=== PATIENT | male | born 1975 | race Caucasian/White ===

== ENCOUNTER 2019-06-19 14:46 | Inpatient (IN) | payer OTHER ==
[~2019-06-19] VITALS: Ht 185.4 cm; Wt 83.5 kg
--- NOTE | ~2019-06-19 | OP ---
[address] [address] OPERATIVE REPORT Name: KAROLINE BISHOP Room: [address] IN M.R.#: [id number] Admission: 06/19/19 Attend Phys: Natali Huynh MD Discharge: Date of : 75 Report #: [id number] THIS REPORT FOR: //name// cc: ERICA Cervantes family physician/PCP ERICA Cervantes family physician/PCP ~ THIS REPORT FOR: //name// CC: ERICA physician/PCP Natali Huynh DATE OF SERVICE: 06/20/2019 PREOPERATIVE DIAGNOSIS: Symptomatic cholelithiasis. POSTOPERATIVE DIAGNOSIS: Symptomatic cholelithiasis. OPERATIVE PROCEDURE DONE: Laparoscopic cholecystectomy. OPERATING SURGEON: Giancarlo Madrid MD INDICATION FOR THE PROCEDURE: The patient is a 43-year-old male who presented with complaints of recurrent episodes of right upper quadrant pain. Clinical exam and ultrasound scan that was done showed features of symptomatic cholelithiasis. The patient was advised laparoscopic cholecystectomy. The patient showed understanding and agreed to proceed. DESCRIPTION OF PROCEDURE: After explaining to the patient in detail and informed consent was obtained, the patient was identified in the preoperative holding area. The patient was transferred to the operating room and was placed in supine position. Sequential compressive devices were placed for DVT prophylaxis. Some preoperative antibiotics were given. After induction of anesthesia, the abdomen was prepped and draped in a sterile fashion. Through a right upper quadrant 1 cm incision and using Optiview technique, the peritoneal cavity was entered and pneumoperitoneum was created. Thereafter, under direct vision, another 5 mm trocar was placed through a supraumbilical incision. Another 5 mm trocar was placed in the epigastrium and one in the right lateral subcostal region. Upon initial inspection, the gallbladder was retracted and the peritoneal reflection along the neck of the gallbladder was gently dissected off. Cystic duct was identified and was isolated from the surrounding structures. Cystic artery was identified. During this part of the dissection, there was an inadvertent bleeding from the cystic artery, which was subsequently clipped. The cystic duct was then double clipped proximally and single clipped applied distally and was then divided. Cystic artery also was then divided in a similar fashion. The gallbladder was gently dissected off the liver bed using hook electrocautery. Absolute hemostasis was achieved. Thorough saline irrigation was given. The gallbladder was retrieved [place] [address] OPERATIVE REPORT Name: KAROLINE BISHOP Room: [address]#: [id number] Admission: 06/19/19 Attend Phys: Natali Huynh MD Discharge: Date of : 75 Report #: [id number] the lateral most incision. Incisions were then closed with 4-0 Monocryl. Dermabond was applied. The patient was stable at the end of the procedure. The patient was awoken up from anesthesia and was transferred to the recovery room in stable condition. ESTIMATED BLOOD LOSS: Approximately 50 mL. CONDITION OF THE PATIENT: Stable. FLUIDS GIVEN: Per anesthesia notes. SPECIMEN SENT: Gallbladder. COMPLICATIONS: None. ANESTHESIA: General anesthesia. By: [id number] Madrid MD /nt
[2019-06-19 15:04] VITALS: BP 165/107
[2019-06-19 15:47] LABS: ABSOLUTE BASOPHILS 0.1 thou/uL (0.0-0.2); ABSOLUTE EOSINOPHILS 0.2 thou/uL (0.0-0.7); ABSOLUTE LYMPHOCYTES 1.8 thou/uL (0.8-5.3); ABSOLUTE MONOCYTES 0.5 thou/uL (0.0-1.2); ABSOLUTE NEUTROPHILS 3.3 thou/uL (1.6-8.1); BASOPHILS 0.9 %; EOSINOPHILS 3.3 %; HEMATOCRIT 45.6 % (42.0-52.0); HEMOGLOBIN 15.9 gm/dL (14.0-18.0); LYMPHOCYTES 31.4 %; MCH 31.6 pg (26.0-34.0); MCHC 34.8 g/dL (28.0-37.0); MCV 90.8 fL (80.0-100.0); MONOCYTES 8.1 %; NUCLEATED RBCS 0 /100WBC; PLATELET COUNT* 208 thou/uL (150-400); POLYS 56.3 %; RBC 5.02 mil/uL (4.50-6.00); RDW-CV 13.4 % (10.5-14.5); WBC 5.9 thou/uL (4.0-11.0)
[2019-06-19 15:56] LABS: CALCIUM 8.9 mg/dL (8.5-10.1); CREATININE 1.2 mg/dL (0.6-1.3); POTASSIUM 3.9 mmol/L (3.5-5.1)
[2019-06-19 16:00] LABS: ALBUMIN 4.4 g/dL (3.4-5.0); TOTAL BILIRUBIN 0.3 mg/dL (<0.1-1.0); TOTAL PROTEIN 7.9 g/dL (6.4-8.2)
--- NOTE | 2019-06-19 18:55 | NUR ---
REPORT GIVEN TO CARL BRUNO WHO IS TO ASSUME PT CARE AT THIS TIME.
[2019-06-19 19:00] LABS: URINE BILIRUBIN NEGATIVE (Negative); URINE BLOOD NEGATIVE (Negative); URINE CLARITY CLEAR; URINE COLOR YELLOW; URINE GLUCOSE-RANDOM NEGATIVE (Negative); URINE KETONES NEGATIVE (Negative); URINE LEUKOCYTES-REFLEX NEGATIVE (Negative); URINE NITRITE-REFLEX NEGATIVE (Negative); URINE PROTEIN NEGATIVE (Negative); URINE UROBILINOGEN 0.2 E.U./dl (0.2-1.0)
[2019-06-19 20:00] VITALS: BP 134/86
[2019-06-19 20:10] VITALS: BP 145/95
[2019-06-20 00:44] VITALS: BP 145/95
--- NOTE | 2019-06-20 06:12 | NUR ---
PATIENT ADMITTED TO UNIT FROM THE ER AT APPROXIMATELY 2009. VSS ON RA. PAIN WELL CONTROLLED AT THIS TIME. IV FLUIDS STARTED. PATIENT ORIENTED TO ROOM AND POLICIES. FALL EDUCATION GIVEN AND FALL AGREEMENT SIGNED. ASSESSMENT CHARTED. PATIENT HAS RESTED WELL THROUGHOUT THE NIGHT. PATIENT INSTRUCTED TO USE CALL LIGHT WHEN NEEDING ASSISTANCE. HOURLY ROUNDS MADE. WILL CONTINUE WITH PLAN OF CARE AND NURSING TO MONITOR.
[2019-06-20 08:40] VITALS: BP 138/97
--- NOTE | 2019-06-20 12:00 | NUR ---
DID NOT SEE PT.TODAY. NURSING SAID HE WAS IN A LOT OF PAIN TODAY. COULD BE HEARD OUTSIDE OF HIS CLOSED DOOR, MOANING AND CRYING OUT. NURSING ATTEMPTING TO GET HIM MORE PAIN MEDICATION FROM
[2019-06-20 17:05] VITALS: BP 121/74
--- NOTE | 2019-06-20 19:00 | NUR ---
PATIENT C/O UNCONTROLLED PAIN IN RT ARM THIS AM, IV SITE NOTED FIRM. IV DISCONTINUED, CATH TIP INTACT. COTTON BALL/TAPE TO SITE, PATIENT ARM NOTED COOL, NAILBEDS WHITE, CAP REFILL WNL, PULSES WNL. US DONE, SEE RESULT. IV SITE TO LT FA. FLUIDS INFUSING W/O DIFF. TO SURGERY FOR PROCEDURE. RETURN TO , REPORT REC'D FROM DAY CARE PROVIDER. PATIENT RESTING, FAMILY MEMBERS PRESENT. PATIENT AWAKENS EASILY TO VERBAL/TOUCH STIM, DENIES NEED FOR PAIN INTERVENTION, CDB DONE. CALM. SCDs ON BLE AND FUNCTIONING APPROP. 4 SURG SITES NOTED TO ABD, NO DRSGS, NO DRNG, WELL APPROX, WNL. CALL LIGHT IN REACH. ~TJRN
[2019-06-20 20:10] VITALS: BP 127/86
[2019-06-21] VITALS: BP 168/48
[2019-06-21 03:40] LABS: HEMATOCRIT 43.7 % (42.0-52.0); HEMOGLOBIN 14.9 gm/dL (14.0-18.0); MCH 31.3 pg (26.0-34.0); MCHC 34.2 g/dL (28.0-37.0); MCV 91.6 fL (80.0-100.0); MPV 9.6 fl. (7.2-11.1); NUCLEATED RBCS 0 /100WBC; PLATELET COUNT* 162 thou/uL (150-400); RBC 4.77 mil/uL (4.50-6.00); RDW-CV 12.9 % (10.5-14.5); WBC 8.2 thou/uL (4.0-11.0)
[2019-06-21 03:44] LABS: CALCIUM 8.3 mg/dL (8.5-10.1); POTASSIUM 4.5 mmol/L (3.5-5.1)
[2019-06-21 04:00] VITALS: BP 116/61
[2019-06-21 05:17] LABS: ABSOLUTE LYMPHOCYTES 0.8 thou/uL (0.8-5.3); ABSOLUTE MONOCYTES 0.4 thou/uL (0.0-1.2); PLATELET ESTIMATE ADEQUATE
--- NOTE | 2019-06-21 06:44 | NUR ---
PATIENT HAS SLEPT OFF AND ON DURING THE NIGHT. VSS ON RA. PATIENT HAS REFUSED PAIN MEDICATIONS DURING THE NIGHT BUT HAS HAD SOME NAUSEA AND VOMITING. NAUSEA MEDICATION GIVEN AND CHARTED. LAP SITES X 4 WITH DERMABOND ARE WELL APPROXIMATED. PATIENT IS UP AND AMBULATING TO THE BATHROOM. IV IN LEFT FOREARM-NS @ 100ML/HR. PATIENT INSTRUCTED TO USE CALL LIGHT WHEN NEEDING ASSISTANCE. HOURLY ROUNDS MADE. WILL CONTINUE WITH PLAN OF CARE AND NURSING TO MONITOR.
[2019-06-21 07:40] VITALS: BP 132/91
[2019-06-21 14:27] VITALS: BP 132/91
--- NOTE | 2019-06-21 14:51 | NUR ---
PER [facility], PT SCREENED AND NOT ELIGIBLE FOR MEDICAID
--- NOTE | 2019-06-21 15:20 | NUR ---
PATIENT NAUSEATED AT BEGINNING OF SHIFT. PRN ZOFRAN GIVEN WITH NO RELIEF. DR. PINON HERE AND NOTIFIED THAT PATIENT ATTEMPTED TO EAT BREAKFAST BUT ATE VERY LITTLE DUE TO NAUSEA, NO VOMITING NOTED. ONE TIME DOSE OF IV ATIVAN ORDERED AND GIVEN. PATIENT SLEPT AND WHEN AWOKE WAS NOTED SITTING ON THE SIDE OF BED EATING LUNCH WITHOUT DIFFICULTY. PATIENT STATED HE FELT MUCH BETTER AND DENIED ANY NAUSEA. DERMABOND NOTED. PATIENT NEVER HAD ANY COMPLAINTS OF PAIN. UP AMBULATING WITHOUT DIFFICULTY. IV DC'D. SPOKE WITH DR. MANN AND OK TO DISCHARGE HOME. DR. PINON ALSO OK TO DISCHARGE. PATIENT TAKEN OUT VIA WHEELCHAIR WITH ALL BELONGINGS.
== END 2019-06-21 14:50 | disposition home or self-care (01) | DRG 419 ==
LOC: M.ERS 14:46 → M.TBA-ER 19:24 → M.ORTHSURG 19:24
PROVIDERS: Physician Assistant; Surgery; ADMIT Internal Medicine
PROC: 0FT44ZZ Resection of Gallbladder, Percutaneous Endoscopic Approach (ICD-10-PCS; principal; 2019-06-20)
DX: K80.00 Calculus of gallbladder with acute cholecystitis without obstruction (principal); F17.210 Nicotine dependence, cigarettes, uncomplicated; K21.9 Gastro-esophageal reflux disease without esophagitis